=== PATIENT | male | born 1995 | race African-American/Black ===

== ENCOUNTER 2018-05-29 21:02 | Emergency (ER) | payer MEDICAID ==
[~2018-05-29] VITALS: Ht 180.3 cm; Wt 64.0 kg
[2018-05-29] MEDS ORDERED: LORazepam 1MG TABLET PO ONE (22:00)
[2018-05-29] MEDS ORDERED: LORazepam 1MG TABLET ONE (22:01)
[2018-05-29 22:38] VITALS: BP 113/70
== END 2018-05-29 22:45 | disposition home or self-care (01) ==
LOC: ED 22:36
DX: F45.8 Other somatoform disorders (principal); R61 Generalized hyperhidrosis; F17.200 Nicotine dependence, unspecified, uncomplicated
CPT/HCPCS: 93005; 99284

== ENCOUNTER 2019-06-24 06:47 | Emergency (ER) | payer MEDICAID ==
[~2019-06-24] VITALS: Ht 180.3 cm; Wt 64.4 kg
[2019-06-24 09:01] VITALS: BP 121/62
== END 2019-06-24 09:11 | disposition home or self-care (01) ==
LOC: ED 08:40
DX: R11.2 Nausea with vomiting, unspecified (principal); R19.7 Diarrhea, unspecified; I10 Essential (primary) hypertension; Z79.899 Other long term (current) drug therapy
CPT/HCPCS: 36415; 74018; 80053; 81001; 83690; 85025; 87086; 96361; 96374; 96375; 99284; J2405; J3490; J7030